=== PATIENT | female | born 1990 | race Caucasian/White ===

== ENCOUNTER 2018-04-05 23:30 | Emergency (ER) | payer BC, MEDICAID ==
[~2018-04-05] VITALS: Ht 162.6 cm; Wt 72.6 kg
[2018-04-06] MEDS ORDERED: LEVETIRACETAM INJ 500 MG in D5W 5% 100 ML IV ONE (02:45)
[2018-04-06] MEDS ORDERED: PHENobarbital SODIUM 130 MG/ML VL IV ONE (03:00)
[2018-04-06 03:28] VITALS: BP 131/73
[2018-04-06] MEDS ORDERED: PHENobarbital 32.4 MG TAB PO ONE (03:30)
[2018-04-06] MEDS ORDERED: LEVETIRACETAM 500 MG TAB PO ONE (03:30)
== END 2018-04-06 03:30 | disposition home or self-care (01) ==
LOC: ER 23:30
DX: S01.81XA Laceration without foreign body of other part of head, initial encounter (principal); S01.511A Laceration without foreign body of lip, initial encounter; G40.409 Other generalized epilepsy and epileptic syndromes, not intractable, without status epilepticus; F84.0 Autistic disorder; W18.39XA Other fall on same level, initial encounter; Y93.89 Activity, other specified; Y99.8 Other external cause status; Y92.89 Other specified places as the place of occurrence of the external cause
CPT/HCPCS: 12013; 36415; 70450; 70486; 80184; 82542; J7060